=== PATIENT | male | born 1990 | race Caucasian/White ===

== ENCOUNTER → 2021-08-23 15:06 | Outpatient (CLI) | payer OTHER, SELFPAY ==
--- NOTE | ~2021-08-23 | XR_ITS ---
XR wrist RT 2V DATE: 08/23/2021 15:28 INDICATION: Right wrist pain TECHNIQUE: AP and lateral views COMPARISON: None FINDINGS: No fracture, dislocation, periosteal reaction or bone destruction, joint space narrowing, c hondrocalcinosis or erosive change is detected. IMPRESSION: Negative Reviewed, dictated and finalized at location A. IMPRESSION: Negative
== END ==
PROVIDERS: PCP Nurse Practitioner; Visit Provider Nurse Practitioner
DX: M25.531 Pain in right wrist (principal)
CPT/HCPCS: 73100

== ENCOUNTER 2023-04-06 15:08 | Outpatient (CLI) | payer OTHER, SELFPAY ==
--- NOTE | ~2023-04-06 | MR_ITS ---
EXAMINATION: MR pituitary wo/w con DATE: 04/06/2023 16:07 INDICATION: Hypogonadotropic hypogonadism. TECHNIQUE: Magnetic resonance imaging (MRI) of the brain and brainstem was performed without and with 20 mL MultiHance intravenous contrast. COMPARISON: None. FINDINGS: The pituitary is normal in size with height of 5 mm and concave superior margin. There is n o intracranial hemorrhage, acute infarction, or abnormal intracranial mass lesion. The ventricles are normal in size. There is mild mucosal thickening in the paranasal sinuses. The orbits are normal. Th e mastoid air cells are normal. IMPRESSION: 1. Normal pituitary. Normal brain. Reviewed, dictated and finalized at location A.
== END 2023-04-06 15:09 ==
PROVIDERS: PCP Nurse Practitioner
DX: E23.0 Hypopituitarism (principal)
CPT/HCPCS: 70553; A9577

== ENCOUNTER 2024-06-27 09:38 | Outpatient (CLI) | payer OTHER, SELFPAY ==
--- NOTE | ~2024-06-27 | MR_ITS ---
MRI of the right knee Clinical history: Lateral collateral ligament sprain Technique: Coronal proton density and proton density-weighted images, sagittal proton-density and T2 fat-sat images, and axial proton-density fat-saturated images were acquired. Findings: Anterior and posterior cruciate ligaments are intact. Medial collateral ligament and the la teral collateral ligament complex are intact. Popliteus tendon is intact. Questionable subtle oblique tear of the posterior horn of the medial meniscus. Lateral meniscus is in tact. Articular cartilage is well preserved throughout the knee. Bone marrow signals are unremarkable. Extensor mechanism is intact. Minimal joint effusion. No Zamora's cyst. There is subcutaneous soft tis matt edema of the knee, specially laterally, nonspecific. Impression: Nonspecific subcutaneous soft tissue edema. Questionable subtle oblique tear of the posterior horn of the medial meniscus. Reviewed, dictated and finalized at [facility]. Impression: Nonspecific subcutaneous soft tissue edema. Questionable subtle oblique tear of the posterior horn of the medial meniscus.
== END 2024-06-27 09:39 | disposition home or self-care (01) ==
LOC: ANHIMG 09:39
PROVIDERS: PCP Nurse Practitioner; Visit Provider Physician Assistant
DX: S83.421A Sprain of lateral collateral ligament of right knee, initial encounter (principal); X58.XXXA Exposure to other specified factors, initial encounter
CPT/HCPCS: 73721